=== PATIENT | female | born 2000 | race Caucasian/White ===

== ENCOUNTER 2020-07-07 14:59 | Emergency (ER) | payer BC, OTHER ==
[~2020-07-07] VITALS: Ht 165.1 cm; Wt 114.3 kg
[2020-07-07 15:08] VITALS: BP_SYST 132
[2020-07-07] MEDS ORDERED: PRED20TA PO (16:02)
[2020-07-07 16:15] VITALS: BP_SYST 132
== END 2020-07-07 16:30 | disposition home or self-care (01) ==
LOC: SED 14:59
DX: J02.9 Acute pharyngitis, unspecified (principal); J45.909 Unspecified asthma, uncomplicated
CPT/HCPCS: 36415; 81025; 86308-TC; 99283

== ENCOUNTER 2023-02-25 07:14 | Day surgery (SDC) | payer BC ==
[~2023-02-25] VITALS: Ht 165.1 cm; Wt 93.0 kg
[~2023-02-25 07:14] MED LIST: PRED20TA PO
[2023-02-25 07:41] LABS: HCG,QUAL RESULT NEGATIVE (NEGATIVE)
[2023-02-25] MEDS ORDERED: ACETAMINOPHEN I.V. 1000 MG 100 ML IV ONE (09:13)
[2023-02-25 09:34] VITALS: O2SAT 97
[2023-02-25] MEDS ORDERED: MIDAZOLAM HCL 2 MG/2 ML VIAL (VERSED) IVP PRN (09:45)
[2023-02-25] MEDS ORDERED: MEPERIDINE HCL/PF 25 MG/ML DISP.SYRIN IVP PRN (09:45)
[2023-02-25] MEDS ORDERED: LR 1,000 ML IV SCH (09:45)
[2023-02-25] MEDS ORDERED: METOCLOPRAMIDE HCL 10 MG/2 ML VIAL IVP PRN (09:45)
[2023-02-25] MEDS ORDERED: HYDROmorphone 1 MG/ML INJ. CARTRIDGE IVP PRN ×2 (09:45)
[2023-02-25] MEDS ORDERED: DEXAMETHASONE SOD PHOSPHATE 4 MG/ML VIAL ONE (10:12)
[2023-02-25] MEDS ORDERED: DESFLURANE 15 MIN GAS INH ONE (10:12)
[2023-02-25] MEDS ORDERED: ONDANSETRON HCL 4 MG/2 ML VIAL ONE (10:12)
[2023-02-25] MEDS ORDERED: MIDAZOLAM HCL 5 MG/ML VIAL (VERSED) IV ONE (10:12)
[2023-02-25] MEDS ORDERED: LIDOCAINE VISCOUS 2%, 15 ML UDC ONE (10:12)
[2023-02-25] MEDS ORDERED: LIDOCAINE/EPI 1% 1:100000 20 ML VIAL ONE (10:12)
[2023-02-25] MEDS ORDERED: SUGAMMADEX SODIUM 200 MG/2 ML VIAL IV ONE (10:12)
[2023-02-25] MEDS ORDERED: WATER FOR IRRIGATION,STERILE 1,000 ML IRRIG.SOLN IR ONE (10:12)
[2023-02-25] MEDS ORDERED: fentaNYL CITRATE/PF 100 MCG/2 ML AMP ONE (10:12)
[2023-02-25] MEDS ORDERED: PROPOFOL 200MG/ 20ML VIAL (DIPRIVAN) IV ONE (10:12)
[2023-02-25] MEDS ORDERED: ROCURONIUM BROMIDE 10 MG/ML (ZEMURON) ONE (10:12)
[2023-02-25] MEDS ORDERED: NS IRRIG SOLN 1000 ML IR ONE (10:12)
[2023-02-25] MEDS ORDERED: LR 1,000 ML IV.SOLN IV ONE (10:12)
[2023-02-25 13:36] VITALS: BP_SYST 122; PULSE 88; RESP 16
== END 2023-02-25 12:17 | disposition home or self-care (01) ==
LOC: SDS 07:14 → SMU 07:16 → SDS 12:17
PROVIDERS: ATTEND Otolaryngology
DX: J35.01 Chronic tonsillitis (principal); J45.909 Unspecified asthma, uncomplicated; E66.9 Obesity, unspecified; G43.909 Migraine, unspecified, not intractable, without status migrainosus; F90.9 Attention-deficit hyperactivity disorder, unspecified type; K21.9 Gastro-esophageal reflux disease without esophagitis; F90.8 Attention-deficit hyperactivity disorder, other type; Z68.34 Body mass index [BMI] 34.0-34.9, adult
CPT/HCPCS: 42826; 84703; 88304; J3490; J2001; J1100; J2250; J2405; J2704; J3010; J7120; J0131